=== PATIENT | male | born 1930 | race Caucasian/White ===

== ENCOUNTER 2017-10-25 10:22 | Observation (INO) | payer MEDICARE ==
[~2017-10-25] VITALS: Ht 172.7 cm; Wt 70.0 kg
[~2017-10-25 10:22] MED LIST: CARV3.12 PO; FURO20TA4 PO; IPRA3AMP4 IH; LEVO137T7 PO; MVIT PO; OMEP20CA10 PO; PRED2.5T PO; SACU1TAB PO; SPIR25TA4 PO; TAMS-1 PO; XALA2.5OS OU
[2017-10-25] MEDS ORDERED: ASPIRIN 325 MG TABLET ONE (10:28)
[2017-10-25 10:39] LABS: BASOPHILS % (AUTO) 0.3 % (0.0-5.0); EOSINOPHILS % (AUTO) 1.8 % (0.0-8.0); HEMATOCRIT 44.8 % (42-54); LYMPHOCYTES % (AUTO) 21.2 % (21.0-51.0); MEAN CORPUSCULAR HEMOGLOBIN 29.9 pg (27.0-33.0); MEAN CORPUSCULAR HGB CONC 33.1 g/dL (32.0-36.0); MEAN CORPUSCULAR VOLUME 90.3 fL (79-99); MONOCYTES % (AUTO) 7.7 % (3.0-13.0); PLATELET COUNT (AUTO) 199 K/uL (130-400); RED BLOOD CELL COUNT(AUTO) 4.96 MIL/uL (4.50-6.20); RED CELL DISTRIBUTION WIDTH 15.9 % (11.0-15.5); WHITE BLOOD COUNT (AUTO) 6.8 K/uL (4.8-10.8)
[2017-10-25 10:46] LABS: CREATININE 1.5 mg/dL (0.5-1.5)
[2017-10-25 11:00] LABS: ALBUMIN 3.4 g/dL (3.5-5.0); BILIRUBIN,TOTAL 0.7 mg/dL (0.2-1.0); CREATINE KINASE MB 6.3 ng/mL (0.5-3.6); TOTAL PROTEIN, SERUM 6.5 g/dL (6.0-8.3)
[2017-10-25 11:33] LABS: PARTIAL THROMBOPLASTIN TIME 36.6 SEC (26.3-35.5)
[2017-10-25 11:37] LABS: INR 3.9 (0.85-1.15); PROTHROMBIN TIME 39.9 SEC (9.6-11.6)
[2017-10-25 14:21] VITALS: BP 131/56
[2017-10-25 14:43] LABS: CREATINE KINASE MB 5.3 ng/mL (0.5-3.6); CREATINE KINASE, TOTAL 150 U/L (21-232); MYOGLOBIN 107 ng/mL (10-92); TROPONIN I < 0.04 ng/mL (0.00-0.06)
[2017-10-25] MEDS ORDERED: NITROGLYCERIN 0.4 MG SL TAB SL PRN (14:45)
[2017-10-25] MEDS ORDERED: MORPHINE SULFATE 4 MG/1ML SYG IVP PRN (14:45)
[2017-10-25] MEDS ORDERED: ACETAMINOPHEN 325 MG TAB PO PRN ×2 (14:45)
[2017-10-25] MEDS ORDERED: GLUCAGON 1MG KIT 1 MG ML IM PRN (14:45)
[2017-10-25] MEDS ORDERED: LACTULOSE 20 GM/30 ML UDCUP PO PRN (14:45)
[2017-10-25] MEDS ORDERED: POTASSIUM CHLORIDE 20 MEQ ERTAB PO PRN (14:45)
[2017-10-25] MEDS ORDERED: POTASSIUM CHLORIDE 10% ELIXIR 20 MEQ/15 ML UDCUP PO PRN (14:45)
[2017-10-25] MEDS ORDERED: LIDOCAINE HCL-MPF 1% 2ML VIAL IJ PRN (14:45)
[2017-10-25] MEDS ORDERED: ZOLPIDEM TARTRATE 5 MG TAB PO PRN (14:45)
[2017-10-25] MEDS ORDERED: DEXTROSE 50%-WATER 50 ML DISP.SYRIN IV PRN (14:45)
[2017-10-25] MEDS ORDERED: MAG HYDROX/AL HYDROX/SIMETH ES 30 ML SUSP UDCUP PO PRN (14:45)
[2017-10-25] MEDS ORDERED: DiphenhydrAMINE HCL 50 MG/ML VIAL IVP PRN (14:45)
[2017-10-25] MEDS ORDERED: CLONIDINE HCL 0.1 MG TABLET PO PRN (14:45)
[2017-10-25] MEDS ORDERED: DIPHENHYDRAMINE HCL 25 MG CAPSULE PO PRN (14:45)
[2017-10-25] MEDS ORDERED: ONDANSETRON HCL 4 MG/2 ML VIAL IVP PRN (14:45)
[2017-10-25] MEDS ORDERED: SODIUM CHLORIDE 0.9% 10 ML VIAL IVP SCH (14:45)
[2017-10-25] MEDS ORDERED: POTASSIUM CHLORIDE 20MEQ/100ML 100 ML IV PRN (14:45)
[2017-10-25] MEDS: NITROGLYCERIN 1GM/1 INCH PACKET TD SCH ×2 (15:00→21:00)
[2017-10-25 15:49] VITALS: BP 99/62
[2017-10-25] MEDS: INSULIN R PO SSI SQ SCH ×2 (16:30→21:00)
[2017-10-25] MEDS ORDERED: SACU1TAB7 PO (18:18)
[2017-10-25] MEDS ORDERED: WARF-57 PO (18:20)
[2017-10-25] MEDS ORDERED: WARF2.5T85 PO (18:20)
[2017-10-25 18:54] LABS: CREATINE KINASE MB 4.4 ng/mL (0.5-3.6); CREATINE KINASE, TOTAL 139 U/L (21-232); MYOGLOBIN 93 ng/mL (10-92); TROPONIN I < 0.04 ng/mL (0.00-0.06)
[2017-10-25 19:00] VITALS: BP 104/70
[2017-10-25] MEDS: GUAIFENESIN-DM 200/20 MG 10 ML PO PRN (22:54)
[2017-10-25 23:00] VITALS: BP 120/74
[2017-10-26] MEDS: NITROGLYCERIN 1GM/1 INCH PACKET TD SCH ×3 (03:00→14:54)
[2017-10-26 04:23] VITALS: BP 128/64
[2017-10-26] MEDS: INSULIN R PO SSI SQ SCH ×4 (07:30→21:00)
[2017-10-26 08:00] VITALS: BP 111/60
[2017-10-26] MEDS: LEVOTHYROXINE 112 MCG TABLET PO SCH (09:00)
[2017-10-26] MEDS ORDERED: ASPIRIN 325 MG TABLET PO SCH (09:00)
[2017-10-26] MEDS: LEVOTHYROXINE 25 MCG TABLET PO SCH (09:00)
[2017-10-26] MEDS: SPIRONOLACTONE 25 MG TAB PO SCH (09:00)
[2017-10-26] MEDS ORDERED: WARFARIN SODIUM 2.5 MG TAB PO SCH ×3 (09:00→16:00)
[2017-10-26] MEDS ORDERED: CARVEDILOL 3.125 MG TABLET PO SCH (09:00)
[2017-10-26 11:00] VITALS: BP 103/62
[2017-10-26] MEDS: PANTOPRAZOLE SODIUM 40 MG TABLET.DR PO SCH (11:16)
[2017-10-26 11:27] LABS: INR 2.21 (0.85-1.15); PROTHROMBIN TIME 22.8 SEC (9.6-11.6)
[2017-10-26] MEDS ORDERED: METHYLPREDNISOLONE SOD SUCC 40MG/ML 1ML IVP SCH (14:30)
[2017-10-26] MEDS ORDERED: LEVO750T46 PO (15:20)
[2017-10-26] MEDS ORDERED: FURO10SO PO (15:20)
[2017-10-26] MEDS ORDERED: SACU1TAB7 PO (15:20)
[2017-10-26 16:00] VITALS: BP 114/69
[2017-10-26] MEDS ORDERED: METOPROLOL TARTRATE 1 MG/ML 5ML VIAL IV PRN (16:45)
[2017-10-26 17:19] LABS: INR 1.98 (0.85-1.15); PROTHROMBIN TIME 20.5 SEC (9.6-11.6)
[2017-10-26] MEDS ORDERED: IPRATROPIUM/ALBUTEROL SULFATE 3 ML SOLUTION IH SCH (18:00)
[2017-10-26 19:05] VITALS: BP 112/68
[2017-10-26 23:05] VITALS: BP 135/68
[2017-10-26] MEDS: IPRATROPIUM/ALBUTEROL SULFATE 3 ML SOLUTION IH SCH (23:54)
[2017-10-27] MEDS: GUAIFENESIN-DM 200/20 MG 10 ML PO PRN (01:24)
[2017-10-27 03:05] VITALS: BP 120/69
[2017-10-27 04:56] LABS: INR 1.83 (0.85-1.15); PARTIAL THROMBOPLASTIN TIME 31.4 SEC (26.3-35.5)
[2017-10-27] MEDS: INSULIN R PO SSI SQ SCH (06:19)
[2017-10-27] MEDS: IPRATROPIUM/ALBUTEROL SULFATE 3 ML SOLUTION IH SCH (06:25)
[2017-10-27 08:00] VITALS: BP 147/96
[2017-10-27] MEDS ORDERED: ASPIRIN 325 MG TABLET PO SCH (09:00)
[2017-10-27] MEDS: SPIRONOLACTONE 25 MG TAB PO SCH (10:35)
[2017-10-27] MEDS: PANTOPRAZOLE SODIUM 40 MG TABLET.DR PO SCH (10:36)
[2017-10-27] MEDS: LEVOTHYROXINE 112 MCG TABLET PO SCH (10:39)
[2017-10-27] MEDS: LEVOTHYROXINE 25 MCG TABLET PO SCH (10:39)
[2017-10-27] MEDS ORDERED: ASPIRIN 81MG TAB.CHEW PO SCH (10:45)
[2017-10-27] MEDS ORDERED: PHARMACY COMMUNICATION MISC SCH (10:45)
[2017-10-27 11:00] VITALS: BP 126/83
[2017-10-27] MEDS ORDERED: WARFARIN SODIUM 5 MG TAB PO SCH (16:00)
[2017-10-30] MEDS ORDERED: WARFARIN SODIUM 5 MG TAB PO SCH (16:00)
== END 2017-10-27 13:08 | disposition home or self-care (01) ==
LOC: EDH 10:22 → EDHIP 13:05 → 3BH 14:08
PROVIDERS: ADMIT Family Medicine; ATTEND Family Medicine
DX: J44.1 Chronic obstructive pulmonary disease with (acute) exacerbation (principal); I11.0 Hypertensive heart disease with heart failure; I50.23 Acute on chronic systolic (congestive) heart failure; J96.10 Chronic respiratory failure, unspecified whether with hypoxia or hypercapnia; J18.9 Pneumonia, unspecified organism; I25.10 Atherosclerotic heart disease of native coronary artery without angina pectoris; D68.69 Other thrombophilia; J44.0 Chronic obstructive pulmonary disease with (acute) lower respiratory infection; E03.9 Hypothyroidism, unspecified; G89.29 Other chronic pain; M54.9 Dorsalgia, unspecified; I42.0 Dilated cardiomyopathy; I48.0 Paroxysmal atrial fibrillation; I48.2 Chronic atrial fibrillation; N28.9 Disorder of kidney and ureter, unspecified; Z88.0 Allergy status to penicillin; Z87.891 Personal history of nicotine dependence; Z79.01 Long term (current) use of anticoagulants
CPT/HCPCS: 36415 ×3; 71045 ×2; 78582; 80053; 82550 ×3; 82553 ×3; 82948 ×4; 83874 ×2; 84484 ×3; 85025; 85610 ×4; 85730 ×2; 93005; 93970; 94640 ×3; 94664; 96374; 99285; A4600; A9540; A9558; G0378 ×48; J2920

== ENCOUNTER 2017-12-07 08:27 | Inpatient (IN) | payer MEDICARE ==
[~2017-12-07] VITALS: Ht 172.7 cm; Wt 69.9 kg
[~2017-12-07 08:27] MED LIST changes: -CARV3.12 PO; +FURO10SO PO; -FURO20TA4 PO; +IPRA3AMP24 IH; -IPRA3AMP4 IH; -MVIT PO; -SACU1TAB PO; +SACU1TAB7 PO; -SPIR25TA4 PO; +SPIR25TA6 PO; -TAMS-1 PO; +WARF-57 PO; +WARF2.5T85 PO
[2017-12-07 08:45] LABS: ABG BASE EXCESS 0.7 mmol/L (-2.0-3.0); ABG HCO3 23.1 mmol/L (21.0-28.0); ABG OXYGEN SATURATION 99.1 % (95.0-99.0); ABG PCO2 31 mmHg (35-48)
[2017-12-07] MEDS ORDERED: MORPHINE SULFATE 4 MG/1ML SYG ONE ×2 (08:54→09:55)
[2017-12-07] MEDS ORDERED: ONDANSETRON HCL MDV 20ML 2 MG/ML VIAL ONE (08:54)
[2017-12-07 08:56] LABS: BASOPHILS % (AUTO) 0.6 % (0.0-5.0); EOSINOPHILS % (AUTO) 1.3 % (0.0-8.0); HEMATOCRIT 41.9 % (42-54); LYMPHOCYTES % (AUTO) 22.2 % (21.0-51.0); MEAN CORPUSCULAR HEMOGLOBIN 30.3 pg (27.0-33.0); MEAN CORPUSCULAR HGB CONC 33.1 g/dL (32.0-36.0); MEAN CORPUSCULAR VOLUME 91.6 fL (79-99); MONOCYTES % (AUTO) 7.5 % (3.0-13.0); NEUTROPHILS % (AUTO) 68.4 % (40.0-77.0); PLATELET COUNT (AUTO) 229 K/uL (130-400); RED BLOOD CELL COUNT(AUTO) 4.58 MIL/uL (4.50-6.20); RED CELL DISTRIBUTION WIDTH 16.2 % (11.0-15.5)
[2017-12-07 09:19] LABS: INR 2.92 (0.85-1.15); PARTIAL THROMBOPLASTIN TIME 27.1 SEC (26.3-35.5); PROTHROMBIN TIME 29.1 SEC (9.6-11.6)
[2017-12-07 09:27] LABS: B-TYPE NATRIURETIC PEPTIDE 287 pg/mL (0-100)
[2017-12-07 09:45] LABS: CREATININE 1.1 mg/dL (0.5-1.5); POTASSIUM 3.9 mmol/L (3.5-5.1)
[2017-12-07 09:58] LABS: ALBUMIN 3.3 g/dL (3.5-5.0); BILIRUBIN,TOTAL 0.7 mg/dL (0.2-1.0); TOTAL PROTEIN, SERUM 6.2 g/dL (6.0-8.3)
[2017-12-07] MEDS ORDERED: IOPAMIDOL-370 100 ML VIAL IV ONE (10:00)
[2017-12-07 10:24] LABS: CREATINE KINASE MB 4.2 ng/mL (0.5-3.6)
[2017-12-07] MEDS ORDERED: NITROGLYCERIN 1GM/1 INCH PACKET TD ONE (11:36)
[2017-12-07] MEDS ORDERED: FUROSEMIDE 10 MG/ML 4ML VIAL ONE (11:36)
[2017-12-07 15:00] VITALS: BP 139/53
[2017-12-07] MEDS ORDERED: SACU1TAB7 PO (15:08)
[2017-12-07] MEDS ORDERED: SODIUM CHLORIDE 0.9% 10 ML VIAL IVP PRN (15:15)
[2017-12-07] MEDS ORDERED: MORPHINE SULFATE 4 MG/1ML SYG IVP PRN (15:15)
[2017-12-07] MEDS ORDERED: MORPHINE SULFATE 4 MG/1ML SYG IV SCH (15:30)
[2017-12-07 16:40] LABS: CREATINE KINASE MB 4.1 ng/mL (0.5-3.6); CREATINE KINASE, TOTAL 78 U/L (21-232); MYOGLOBIN 107 ng/mL (10-92); TROPONIN I < 0.04 ng/mL (0.00-0.06)
[2017-12-07] MEDS ORDERED: MORPHINE SULFATE 4 MG/1ML SYG IV PRN (17:45)
[2017-12-07 19:27] VITALS: BP 124/66
[2017-12-07] MEDS ORDERED: ***HM***(Sacubitril/Valsartan (Entresto 49 mg-51 mg Tablet) 1 EACH PO SCH (21:00)
[2017-12-07] MEDS ORDERED: METOPROLOL TARTRATE 25 MG TAB PO SCH (21:00)
[2017-12-07] MEDS: IPRATROPIUM/ALBUTEROL SULFATE 3 ML SOLUTION IH SCH (21:49)
[2017-12-07] MEDS: LATANOPROST 2.5 ML DROPS OU SCH (21:55)
[2017-12-07 22:01] LABS: CREATINE KINASE, TOTAL 72 U/L (21-232); MYOGLOBIN 97 ng/mL (10-92); TROPONIN I < 0.04 ng/mL (0.00-0.06)
[2017-12-08] VITALS (7 sets, daily range): BP systolic 99–119; BP diastolic 47–77
[2017-12-08 05:25] LABS: HEMATOCRIT 42.4 % (42-54); MEAN CORPUSCULAR HEMOGLOBIN 29.9 pg (27.0-33.0); MEAN CORPUSCULAR HGB CONC 32.5 g/dL (32.0-36.0); MEAN CORPUSCULAR VOLUME 91.7 fL (79-99); PLATELET COUNT (AUTO) 208 K/uL (130-400); RED BLOOD CELL COUNT(AUTO) 4.62 MIL/uL (4.50-6.20); RED CELL DISTRIBUTION WIDTH 16.3 % (11.0-15.5); WHITE BLOOD COUNT (AUTO) 10.1 K/uL (4.8-10.8)
[2017-12-08 05:33] LABS: INR 2.16 (0.85-1.15); PARTIAL THROMBOPLASTIN TIME 30.9 SEC (26.3-35.5); PROTHROMBIN TIME 21.7 SEC (9.6-11.6)
[2017-12-08 05:36] LABS: POTASSIUM 4.6 mmol/L (3.5-5.1)
[2017-12-08 05:37] LABS: LYMPHOCYTES % (MANUAL) 13 % (22-44); MAN.DIFF COMMENT-IMPRESSION MANUAL DIFFERENTIAL; MONOCYTES % (MANUAL) 7 % (2-9); PLATELET MORPHOLOGY COMMENT ADEQUATE; REACTIVE LYMPHOCYTES 2 % (0-0); SEGMENTED NEUTROPHILS % 78 % (40-70)
[2017-12-08] MEDS: IPRATROPIUM/ALBUTEROL SULFATE 3 ML SOLUTION IH SCH ×3 (06:29→21:54)
[2017-12-08] MEDS: LEVOTHYROXINE 25 MCG TABLET PO SCH (07:47)
[2017-12-08] MEDS: PREDNISONE 5 MG TABLET PO SCH (07:47)
[2017-12-08] MEDS: LEVOTHYROXINE 112 MCG TABLET PO SCH (07:47)
[2017-12-08] MEDS: CARVEDILOL 6.25 MG TABLET PO SCH ×2 (07:48→20:50)
[2017-12-08] MEDS: LOSARTAN 50 MG TABLET PO SCH (07:48)
[2017-12-08] MEDS: FUROSEMIDE 20 MG TABLET PO SCH (07:48)
[2017-12-08] MEDS: PANTOPRAZOLE SODIUM 40 MG TABLET.DR PO SCH (07:49)
[2017-12-08] MEDS: SPIRONOLACTONE 25 MG TAB PO SCH (07:49)
[2017-12-08] MEDS ORDERED: WARFARIN SODIUM 5 MG TAB PO SCH ×2 (16:00)
[2017-12-08] MEDS: LATANOPROST 2.5 ML DROPS OU SCH (20:50)
[2017-12-09 03:46] VITALS: BP 111/67
[2017-12-09 04:40] LABS: HEMATOCRIT 39.5 % (42-54); MEAN CORPUSCULAR HEMOGLOBIN 30.8 pg (27.0-33.0); MEAN CORPUSCULAR HGB CONC 33.5 g/dL (32.0-36.0); MEAN CORPUSCULAR VOLUME 91.9 fL (79-99); PLATELET COUNT (AUTO) 158 K/uL (130-400); RED CELL DISTRIBUTION WIDTH 15.6 % (11.0-15.5); WHITE BLOOD COUNT (AUTO) 10.4 K/uL (4.8-10.8)
[2017-12-09 04:47] LABS: POTASSIUM 4.6 mmol/L (3.5-5.1)
[2017-12-09 04:50] LABS: INR 1.38 (0.85-1.15); PARTIAL THROMBOPLASTIN TIME 32.9 SEC (26.3-35.5); PROTHROMBIN TIME 14.4 SEC (9.6-11.6)
[2017-12-09] MEDS: LEVOTHYROXINE 25 MCG TABLET PO SCH (06:03)
[2017-12-09] MEDS: LEVOTHYROXINE 112 MCG TABLET PO SCH (06:03)
[2017-12-09 06:09] LABS: BAND NEUTROPHILS % (MANUAL) 3 % (0-2); LYMPHOCYTES % (MANUAL) 7 % (22-44); MAN.DIFF COMMENT-IMPRESSION MANUAL DIFFERENTIAL; MONOCYTES % (MANUAL) 7 % (2-9); PLATELET MORPHOLOGY COMMENT ADEQUATE; REACTIVE LYMPHOCYTES 1 % (0-0); SEGMENTED NEUTROPHILS % 82 % (40-70)
[2017-12-09] MEDS: IPRATROPIUM/ALBUTEROL SULFATE 3 ML SOLUTION IH SCH ×3 (06:13→21:55)
[2017-12-09] MEDS ORDERED: SACU1TAB PO (06:28)
[2017-12-09] MEDS ORDERED: CARV12.511 PO (06:28)
[2017-12-09] MEDS ORDERED: WARFARIN SODIUM 5 MG TAB PO SCH (06:30)
[2017-12-09] MEDS: PANTOPRAZOLE SODIUM 40 MG TABLET.DR PO SCH (06:33)
[2017-12-09 07:50] VITALS: BP 110/61
[2017-12-09] MEDS ORDERED: METHYLPREDNISOLONE SOD SUCC 125MG/2ML VIAL IVP SCH (08:00)
[2017-12-09] MEDS: LOSARTAN 50 MG TABLET PO SCH (09:08)
[2017-12-09] MEDS: FUROSEMIDE 20 MG TABLET PO SCH (09:08)
[2017-12-09] MEDS: SPIRONOLACTONE 25 MG TAB PO SCH (09:08)
[2017-12-09] MEDS: CARVEDILOL 6.25 MG TABLET PO SCH ×2 (09:09→20:23)
[2017-12-09] MEDS: PREDNISONE 5 MG TABLET PO SCH (09:09)
[2017-12-09 11:17] VITALS: BP 96/52
[2017-12-09] MEDS ORDERED: WARFARIN SODIUM 2.5 MG TAB PO SCH ×2 (16:00)
[2017-12-09 16:21] VITALS: BP 100/48
[2017-12-09 20:00] VITALS: BP 104/64
[2017-12-09] MEDS: LATANOPROST 2.5 ML DROPS OU SCH (20:22)
[2017-12-09 23:39] VITALS: BP 112/58
[2017-12-10 03:41] VITALS: BP 114/62
[2017-12-10 04:40] LABS: INR 1.62 (0.85-1.15); PROTHROMBIN TIME 16.8 SEC (9.6-11.6)
[2017-12-10] MEDS: PANTOPRAZOLE SODIUM 40 MG TABLET.DR PO SCH (05:32)
[2017-12-10] MEDS: LEVOTHYROXINE 25 MCG TABLET PO SCH (05:32)
[2017-12-10] MEDS: LEVOTHYROXINE 112 MCG TABLET PO SCH (05:32)
[2017-12-10] MEDS: IPRATROPIUM/ALBUTEROL SULFATE 3 ML SOLUTION IH SCH (06:31)
[2017-12-10] MEDS ORDERED: ATOR10 PO (07:28)
[2017-12-10 07:45] VITALS: BP 110/64
[2017-12-10] MEDS: FUROSEMIDE 20 MG TABLET PO SCH (09:05)
[2017-12-10 09:06] VITALS: BP 110/64
[2017-12-10] MEDS: PREDNISONE 5 MG TABLET PO SCH (09:06)
[2017-12-10] MEDS: CARVEDILOL 6.25 MG TABLET PO SCH (09:06)
[2017-12-10] MEDS: SPIRONOLACTONE 25 MG TAB PO SCH (09:06)
[2017-12-10] MEDS: LOSARTAN 50 MG TABLET PO SCH (09:07)
== END 2017-12-10 12:10 | disposition home or self-care (01) | DRG 300 ==
LOC: EDH 08:27 → EDHIP 11:33 → INTOOBSV 11:33 → OBSVTOIN 11:33 → 2DH 14:52
PROVIDERS: ADMIT Internal Medicine; ATTEND Internal Medicine
DX: I71.2 Thoracic aortic aneurysm, without rupture (principal); I50.22 Chronic systolic (congestive) heart failure; I42.0 Dilated cardiomyopathy; I11.0 Hypertensive heart disease with heart failure; I48.2 Chronic atrial fibrillation; I71.4 Abdominal aortic aneurysm, without rupture; I25.10 Atherosclerotic heart disease of native coronary artery without angina pectoris; E03.9 Hypothyroidism, unspecified; E78.5 Hyperlipidemia, unspecified; G89.29 Other chronic pain; J44.9 Chronic obstructive pulmonary disease, unspecified; Z79.01 Long term (current) use of anticoagulants; Z79.52 Long term (current) use of systemic steroids; Z79.899 Other long term (current) drug therapy; Z86.711 Personal history of pulmonary embolism; Z86.718 Personal history of other venous thrombosis and embolism; Z88.0 Allergy status to penicillin
CPT/HCPCS: 36415; 36600; 71045; 71275; 80048; 80053; 82550; 82553; 82803; 83874; 83880; 84484; 85025; 85610; 85730; 93005; 93306; 94640; 94660; 94664; J1940; J2270; J2930; J7512; Q9967

== ENCOUNTER → 2017-12-14 | Outpatient (CLI) | payer MEDICARE ==
[~2017-12-14] MED LIST changes: +ATOR10 PO; +CARV12.511 PO; +SACU1TAB PO; -SACU1TAB7 PO
== END | disposition home or self-care (01) ==
LOC: OIH 11:14
PROVIDERS: ATTEND Internal Medicine
DX: M81.0 Age-related osteoporosis without current pathological fracture (principal)
CPT/HCPCS: 72070

== ENCOUNTER → 2018-05-20 | Outpatient (CLI) | payer MEDICARE | END | disposition home or self-care (01) | LOC: RAH 14:10 | PROVIDERS: ATTEND Internal Medicine | DX: N60.01 Solitary cyst of right breast (principal); E78.5 Hyperlipidemia, unspecified | CPT/HCPCS: 76641 ==

== ENCOUNTER → 2018-05-20 | Outpatient (CLI) | payer MEDICARE ==
[~2018-05-20] MED LIST changes: +HONEY 1 APPL/ML TUBE TP ONE
[2018-05-20 13:00] VITALS: BP 99/68
== END | disposition home or self-care (01) ==
LOC: WHH 10:15
PROVIDERS: ATTEND Surgery
DX: I70.232 Atherosclerosis of native arteries of right leg with ulceration of calf (principal); L97.212 Non-pressure chronic ulcer of right calf with fat layer exposed; I48.91 Unspecified atrial fibrillation; J44.9 Chronic obstructive pulmonary disease, unspecified; E78.5 Hyperlipidemia, unspecified; I11.0 Hypertensive heart disease with heart failure; I50.42 Chronic combined systolic (congestive) and diastolic (congestive) heart failure; K21.9 Gastro-esophageal reflux disease without esophagitis; Z87.891 Personal history of nicotine dependence; Z86.718 Personal history of other venous thrombosis and embolism; Z86.711 Personal history of pulmonary embolism
CPT/HCPCS: A4450; G0463

== ENCOUNTER → 2018-05-21 | Outpatient (CLI) | payer MEDICARE ==
[~2018-05-21] MED LIST changes: -HONEY 1 APPL/ML TUBE TP ONE
== END | disposition home or self-care (01) ==
LOC: WHH 08:20
PROVIDERS: ATTEND Surgery
DX: I70.238 Atherosclerosis of native arteries of right leg with ulceration of other part of lower leg (principal); L97.811 Non-pressure chronic ulcer of other part of right lower leg limited to breakdown of skin; J44.9 Chronic obstructive pulmonary disease, unspecified; K21.9 Gastro-esophageal reflux disease without esophagitis; E78.5 Hyperlipidemia, unspecified; I48.91 Unspecified atrial fibrillation; I11.0 Hypertensive heart disease with heart failure; I50.42 Chronic combined systolic (congestive) and diastolic (congestive) heart failure
CPT/HCPCS: 93922

== ENCOUNTER → 2018-05-25 | Outpatient (CLI) | payer MEDICARE | END | disposition home or self-care (01) | LOC: RAH 12:33 | PROVIDERS: ATTEND Surgery | DX: I70.238 Atherosclerosis of native arteries of right leg with ulceration of other part of lower leg (principal); I11.0 Hypertensive heart disease with heart failure; I50.42 Chronic combined systolic (congestive) and diastolic (congestive) heart failure; E78.5 Hyperlipidemia, unspecified; I48.91 Unspecified atrial fibrillation; J44.9 Chronic obstructive pulmonary disease, unspecified; K21.9 Gastro-esophageal reflux disease without esophagitis | CPT/HCPCS: 93926 ==

== ENCOUNTER → 2018-06-03 | Outpatient (CLI) | payer MEDICARE ==
[2018-06-03 14:46] VITALS: BP 112/73
== END | disposition home or self-care (01) ==
LOC: WHH 08:30
PROVIDERS: ATTEND Surgery
DX: I70.232 Atherosclerosis of native arteries of right leg with ulceration of calf (principal); L97.212 Non-pressure chronic ulcer of right calf with fat layer exposed; I48.91 Unspecified atrial fibrillation; J44.9 Chronic obstructive pulmonary disease, unspecified; E78.5 Hyperlipidemia, unspecified; I11.0 Hypertensive heart disease with heart failure; I50.42 Chronic combined systolic (congestive) and diastolic (congestive) heart failure; K21.9 Gastro-esophageal reflux disease without esophagitis; Z87.891 Personal history of nicotine dependence; Z86.718 Personal history of other venous thrombosis and embolism; Z86.711 Personal history of pulmonary embolism
CPT/HCPCS: G0463

== ENCOUNTER → 2018-06-10 | Outpatient (CLI) | payer MEDICARE ==
[~2018-06-10] MED LIST changes: +LIDOCAINE/PRILOCAINE CREAM 5GM TUBE TP ONE
[2018-06-10 14:14] VITALS: BP 130/87
== END | disposition home or self-care (01) ==
LOC: WHH 08:50
PROVIDERS: ATTEND Surgery
DX: I70.232 Atherosclerosis of native arteries of right leg with ulceration of calf (principal); L97.212 Non-pressure chronic ulcer of right calf with fat layer exposed; I48.91 Unspecified atrial fibrillation; J44.9 Chronic obstructive pulmonary disease, unspecified; E78.5 Hyperlipidemia, unspecified; I11.0 Hypertensive heart disease with heart failure; I50.42 Chronic combined systolic (congestive) and diastolic (congestive) heart failure; K21.9 Gastro-esophageal reflux disease without esophagitis; Z87.891 Personal history of nicotine dependence; Z86.718 Personal history of other venous thrombosis and embolism; Z86.711 Personal history of pulmonary embolism
CPT/HCPCS: 11042; A6021; J3490

== ENCOUNTER → 2018-06-17 | Outpatient (CLI) | payer MEDICARE ==
[2018-06-17 12:35] VITALS: BP 134/95
== END | disposition home or self-care (01) ==
LOC: WHH 09:00
PROVIDERS: ATTEND Surgery
DX: I70.232 Atherosclerosis of native arteries of right leg with ulceration of calf (principal); L97.212 Non-pressure chronic ulcer of right calf with fat layer exposed; I48.91 Unspecified atrial fibrillation; J44.9 Chronic obstructive pulmonary disease, unspecified; E78.5 Hyperlipidemia, unspecified; I11.0 Hypertensive heart disease with heart failure; I50.42 Chronic combined systolic (congestive) and diastolic (congestive) heart failure; K21.9 Gastro-esophageal reflux disease without esophagitis; Z87.891 Personal history of nicotine dependence; Z86.718 Personal history of other venous thrombosis and embolism; Z86.711 Personal history of pulmonary embolism
CPT/HCPCS: 11042; A6021; J3490

== ENCOUNTER → 2018-06-24 | Outpatient (CLI) | payer MEDICARE ==
[~2018-06-24] MED LIST changes: -LIDOCAINE/PRILOCAINE CREAM 5GM TUBE TP ONE
[2018-06-24 13:50] VITALS: BP 123/77
== END | disposition home or self-care (01) ==
LOC: WHH 08:45
PROVIDERS: ATTEND Surgery
DX: I70.232 Atherosclerosis of native arteries of right leg with ulceration of calf (principal); L97.212 Non-pressure chronic ulcer of right calf with fat layer exposed; I48.91 Unspecified atrial fibrillation; J44.9 Chronic obstructive pulmonary disease, unspecified; E78.5 Hyperlipidemia, unspecified; I11.0 Hypertensive heart disease with heart failure; I50.42 Chronic combined systolic (congestive) and diastolic (congestive) heart failure; K21.9 Gastro-esophageal reflux disease without esophagitis; Z87.891 Personal history of nicotine dependence; Z86.718 Personal history of other venous thrombosis and embolism; Z86.711 Personal history of pulmonary embolism
CPT/HCPCS: A6022; G0463

== ENCOUNTER → 2018-07-01 | Outpatient (CLI) | payer MEDICARE ==
[~2018-07-01] MED LIST changes: +LIDOCAINE/PRILOCAINE CREAM 5GM TUBE TP ONE
[2018-07-01 13:28] VITALS: BP 113/78
== END | disposition home or self-care (01) ==
LOC: WHH 08:55
PROVIDERS: ATTEND Surgery
DX: I70.232 Atherosclerosis of native arteries of right leg with ulceration of calf (principal); I87.331 Chronic venous hypertension (idiopathic) with ulcer and inflammation of right lower extremity; L97.212 Non-pressure chronic ulcer of right calf with fat layer exposed; I48.91 Unspecified atrial fibrillation; J44.9 Chronic obstructive pulmonary disease, unspecified; E78.5 Hyperlipidemia, unspecified; I11.0 Hypertensive heart disease with heart failure; I50.42 Chronic combined systolic (congestive) and diastolic (congestive) heart failure; K21.9 Gastro-esophageal reflux disease without esophagitis; Z87.891 Personal history of nicotine dependence; Z86.718 Personal history of other venous thrombosis and embolism; Z86.711 Personal history of pulmonary embolism
CPT/HCPCS: 29580; A6021; A6456; G0463; J3490

== ENCOUNTER → 2018-07-08 | Outpatient (CLI) | payer MEDICARE ==
[~2018-07-08] MED LIST changes: -LIDOCAINE/PRILOCAINE CREAM 5GM TUBE TP ONE
[2018-07-08 13:59] VITALS: BP 103/73
== END | disposition home or self-care (01) ==
LOC: WHH 09:00
PROVIDERS: ATTEND Surgery
DX: I70.232 Atherosclerosis of native arteries of right leg with ulceration of calf (principal); I87.331 Chronic venous hypertension (idiopathic) with ulcer and inflammation of right lower extremity; L97.212 Non-pressure chronic ulcer of right calf with fat layer exposed; I48.91 Unspecified atrial fibrillation; J44.9 Chronic obstructive pulmonary disease, unspecified; E78.5 Hyperlipidemia, unspecified; I11.0 Hypertensive heart disease with heart failure; I50.42 Chronic combined systolic (congestive) and diastolic (congestive) heart failure; K21.9 Gastro-esophageal reflux disease without esophagitis; Z87.891 Personal history of nicotine dependence; Z86.718 Personal history of other venous thrombosis and embolism; Z86.711 Personal history of pulmonary embolism
CPT/HCPCS: 29580; A6456; G0463

== ENCOUNTER → 2018-07-15 | Outpatient (CLI) | payer MEDICARE ==
[~2018-07-15] MED LIST changes: +LIDOCAINE/PRILOCAINE CREAM 5GM TUBE TP ONE
[2018-07-15 13:31] VITALS: BP 127/82
== END | disposition home or self-care (01) ==
LOC: WHH 09:00
PROVIDERS: ATTEND Surgery
DX: I70.232 Atherosclerosis of native arteries of right leg with ulceration of calf (principal); I87.331 Chronic venous hypertension (idiopathic) with ulcer and inflammation of right lower extremity; L97.212 Non-pressure chronic ulcer of right calf with fat layer exposed; I48.91 Unspecified atrial fibrillation; J44.9 Chronic obstructive pulmonary disease, unspecified; E78.5 Hyperlipidemia, unspecified; I11.0 Hypertensive heart disease with heart failure; I50.42 Chronic combined systolic (congestive) and diastolic (congestive) heart failure; K21.9 Gastro-esophageal reflux disease without esophagitis; Z87.891 Personal history of nicotine dependence; Z86.718 Personal history of other venous thrombosis and embolism; Z86.711 Personal history of pulmonary embolism
CPT/HCPCS: A6209; G0463; J3490

== ENCOUNTER → 2018-07-29 | Outpatient (CLI) | payer MEDICARE ==
[~2018-07-29] MED LIST changes: -LIDOCAINE/PRILOCAINE CREAM 5GM TUBE TP ONE
[2018-07-29 14:11] VITALS: BP 104/71
== END | disposition home or self-care (01) ==
LOC: WHH 10:25
PROVIDERS: ATTEND Surgery
DX: I70.232 Atherosclerosis of native arteries of right leg with ulceration of calf (principal); I87.331 Chronic venous hypertension (idiopathic) with ulcer and inflammation of right lower extremity; L97.218 Non-pressure chronic ulcer of right calf with other specified severity; I48.91 Unspecified atrial fibrillation; J44.9 Chronic obstructive pulmonary disease, unspecified; E78.5 Hyperlipidemia, unspecified; I11.0 Hypertensive heart disease with heart failure; I50.42 Chronic combined systolic (congestive) and diastolic (congestive) heart failure; K21.9 Gastro-esophageal reflux disease without esophagitis; Z87.891 Personal history of nicotine dependence; Z86.718 Personal history of other venous thrombosis and embolism; Z86.711 Personal history of pulmonary embolism
CPT/HCPCS: G0463

== ENCOUNTER → 2019-02-23 | Outpatient (CLI) | payer MEDICARE | END | disposition home or self-care (01) | LOC: RAH 12:33 | PROVIDERS: ATTEND Internal Medicine | DX: K76.89 Other specified diseases of liver (principal); K43.9 Ventral hernia without obstruction or gangrene; K44.9 Diaphragmatic hernia without obstruction or gangrene; N32.89 Other specified disorders of bladder; N28.1 Cyst of kidney, acquired; I51.7 Cardiomegaly; I70.0 Atherosclerosis of aorta; M47.817 Spondylosis without myelopathy or radiculopathy, lumbosacral region; M43.10 Spondylolisthesis, site unspecified | CPT/HCPCS: 74176 ==

== ENCOUNTER 2019-04-07 18:22 | Emergency (ER) | payer MEDICARE ==
[~2019-04-07 18:22] MED LIST changes: +OMEP-50 PO; -OMEP20CA10 PO
[2019-04-07] MEDS ORDERED: OCTYL 2-CYANOACRYLATE 1 EACH TP ONE (18:46)
[2019-04-07] MEDS ORDERED: TETANUS/DIPHTHERIA TOXOID [ADULT] 0.5 ML VIAL IM ONE (18:47)
[2019-04-07 19:21] LABS: POTASSIUM 4.3 mmol/L (3.5-5.1)
[2019-04-07 19:26] LABS: ALBUMIN 3.3 g/dL (3.5-5.0); BILIRUBIN,TOTAL 0.7 mg/dL (0.2-1.0); EOSINOPHILS % (AUTO) 6.9 % (0.0-8.0); HEMATOCRIT 39.7 % (42-54); LYMPHOCYTES % (AUTO) 20.4 % (21.0-51.0); MEAN CORPUSCULAR HEMOGLOBIN 30.5 pg (27.0-33.0); MEAN CORPUSCULAR HGB CONC 32.6 g/dL (32.0-36.0); MEAN CORPUSCULAR VOLUME 93.4 fL (79-99); MONOCYTES % (AUTO) 13.1 % (3.0-13.0); NEUTROPHILS % (AUTO) 58.6 % (40.0-77.0); NUCLEATED RED BLOOD CELLS 0.1 % (0.0-0.19); PLATELET COUNT (AUTO) 143 K/uL (130-400); RED BLOOD CELL COUNT(AUTO) 4.25 MIL/uL (4.50-6.20); RED CELL DISTRIBUTION WIDTH 15.3 % (11.0-15.5); TOTAL PROTEIN, SERUM 6.8 g/dL (6.0-8.3); WHITE BLOOD COUNT (AUTO) 4.7 K/uL (4.8-10.8)
[2019-04-07 19:47] LABS: B-TYPE NATRIURETIC PEPTIDE 765 pg/mL (0-100)
[2019-04-07 19:59] LABS: INR 1.86 (0.85-1.15); PARTIAL THROMBOPLASTIN TIME 33.6 SEC (26.3-35.5); PROTHROMBIN TIME 19.3 SEC (9.6-11.6)
== END 2019-04-07 20:37 | disposition left against medical advice (07) ==
LOC: EDH 18:22
DX: S81.811A Laceration without foreign body, right lower leg, initial encounter (principal); I48.91 Unspecified atrial fibrillation; I48.92 Unspecified atrial flutter; I25.10 Atherosclerotic heart disease of native coronary artery without angina pectoris; J44.9 Chronic obstructive pulmonary disease, unspecified; I10 Essential (primary) hypertension; Z87.891 Personal history of nicotine dependence; Z88.0 Allergy status to penicillin; W01.190A Fall on same level from slipping, tripping and stumbling with subsequent striking against furniture, initial encounter; Y93.89 Activity, other specified; Y92.098 Other place in other non-institutional residence as the place of occurrence of the external cause; Y99.8 Other external cause status
CPT/HCPCS: 36415; 73590; 80053; 82550; 83880; 84484; 85025; 85610; 85730; 90471; 90714; 93005; 99285; G0480

== ENCOUNTER 2019-06-15 10:46 | Observation (INO) | payer MEDICARE ==
[~2019-06-15] VITALS: Ht 175.3 cm; Wt 68.4 kg
[~2019-06-15 10:46] MED LIST changes: +OMEP-298 PO; -OMEP-50 PO
[2019-06-15 11:17] LABS: BASOPHILS % (AUTO) 0.4 % (0.0-5.0); EOSINOPHILS % (AUTO) 0.8 % (0.0-8.0); HEMATOCRIT 41.7 % (42-54); LYMPHOCYTES % (AUTO) 4.4 % (21.0-51.0); MEAN CORPUSCULAR HEMOGLOBIN 30.1 pg (27.0-33.0); MEAN CORPUSCULAR HGB CONC 32.9 g/dL (32.0-36.0); MEAN CORPUSCULAR VOLUME 91.6 fL (79-99); MONOCYTES % (AUTO) 5.9 % (3.0-13.0); NEUTROPHILS % (AUTO) 88.5 % (40.0-77.0); PLATELET COUNT (AUTO) 157 K/uL (130-400); RED BLOOD CELL COUNT(AUTO) 4.55 MIL/uL (4.50-6.20); RED CELL DISTRIBUTION WIDTH 14.6 % (11.0-15.5); WHITE BLOOD COUNT (AUTO) 10.7 K/uL (4.8-10.8)
[2019-06-15] MEDS ORDERED: LEVOFLOXACIN 750 MG/D5W 150 ML 150 ML ONE (11:28)
[2019-06-15] MEDS ORDERED: METHYLPREDNISOLONE SOD SUCC 40MG/ML 1ML ONE (11:28)
[2019-06-15 11:31] LABS: POTASSIUM 4.6 mmol/L (3.5-5.1)
[2019-06-15 11:36] LABS: ALBUMIN 3.5 g/dL (3.5-5.0); BILIRUBIN,TOTAL 1.1 mg/dL (0.2-1.0); TOTAL PROTEIN, SERUM 7.4 g/dL (6.0-8.3)
[2019-06-15 11:37] LABS: RAPID GROUP A STREP NEGATIVE (NEGATIVE)
[2019-06-15] MEDS ORDERED: IPRATROPIUM 0.5 MG/2.5 ML INH IH SCH (13:45)
[2019-06-15] MEDS ORDERED: HYDRALAZINE HCL 20 MG/ML VIAL IM PRN (13:45)
[2019-06-15] MEDS: METHYLPREDNISOLONE SOD SUCC 40MG/ML 1ML IVP SCH ×2 (13:45→21:45)
[2019-06-15 14:00] VITALS: BP 129/90
[2019-06-15 16:00] VITALS: BP 123/91
[2019-06-15] MEDS ORDERED: WARFARIN SODIUM 2.5 MG TAB PO SCH (16:00)
[2019-06-15] MEDS ORDERED: IOHEXOL-350 75 ML VIAL IV ONE (16:28)
[2019-06-15 17:59] LABS: INR 2.09 (0.85-1.15); PROTHROMBIN TIME 21.3 SEC (9.6-11.6)
[2019-06-15] MEDS: BUDESONIDE 0.5 MG/2 ML INH IH SCH (19:00)
[2019-06-15] MEDS: IPRATROPIUM 0.5 MG/2.5 ML INH IH SCH (19:01)
[2019-06-15 20:29] VITALS: BP 119/69
[2019-06-15] MEDS: LATANOPROST 2.5 ML DROPS OU SCH (21:00)
[2019-06-15] MEDS: ATORVASTATIN CALCIUM 20 MG TABLET PO SCH (21:00)
[2019-06-15] MEDS ORDERED: BUDESONIDE 0.5 MG/2 ML INH IH SCH (21:00)
[2019-06-15] MEDS: CARVEDILOL 12.5 MG TABLET PO SCH (21:00)
[2019-06-16 00:24] VITALS: BP 116/76
[2019-06-16 05:13] LABS: HEMATOCRIT 38.1 % (42-54); LYMPHOCYTES % (AUTO) 3.8 % (21.0-51.0); MEAN CORPUSCULAR HEMOGLOBIN 30.9 pg (27.0-33.0); MEAN CORPUSCULAR HGB CONC 33.4 g/dL (32.0-36.0); MEAN CORPUSCULAR VOLUME 92.5 fL (79-99); MONOCYTES % (AUTO) 2.2 % (3.0-13.0); PLATELET COUNT (AUTO) 131 K/uL (130-400); RED BLOOD CELL COUNT(AUTO) 4.12 MIL/uL (4.50-6.20); RED CELL DISTRIBUTION WIDTH 14.7 % (11.0-15.5); WHITE BLOOD COUNT (AUTO) 10.5 K/uL (4.8-10.8)
[2019-06-16 05:20] LABS: INR 1.69 (0.85-1.15); PROTHROMBIN TIME 17.4 SEC (9.6-11.6)
[2019-06-16 05:24] VITALS: BP 109/63
[2019-06-16 05:35] LABS: ALBUMIN 2.8 g/dL (3.5-5.0); BILIRUBIN,TOTAL 1.1 mg/dL (0.2-1.0); MAGNESIUM 1.9 mg/dL (1.80-2.40); POTASSIUM 4.1 mmol/L (3.5-5.1); TOTAL PROTEIN, SERUM 6.5 g/dL (6.0-8.3)
[2019-06-16 05:38] LABS: B-TYPE NATRIURETIC PEPTIDE 1220 pg/mL (0-100)
[2019-06-16] MEDS: METHYLPREDNISOLONE SOD SUCC 40MG/ML 1ML IVP SCH ×3 (06:16→20:59)
[2019-06-16] MEDS: LEVOTHYROXINE 112 MCG TABLET PO SCH (06:20)
[2019-06-16] MEDS: LEVOTHYROXINE 25 MCG TABLET PO SCH (06:20)
[2019-06-16] MEDS: IPRATROPIUM 0.5 MG/2.5 ML INH IH SCH ×5 (07:21→23:11)
[2019-06-16] MEDS: BUDESONIDE 0.5 MG/2 ML INH IH SCH ×2 (07:28→18:33)
[2019-06-16 07:30] VITALS: BP 104/74
[2019-06-16] MEDS: CARVEDILOL 12.5 MG TABLET PO SCH ×2 (09:00→21:00)
[2019-06-16] MEDS: SPIRONOLACTONE 25 MG TAB PO SCH (09:01)
[2019-06-16] MEDS: LEVOFLOXACIN 750 MG/D5W 150 ML 150 ML IV SCH (09:05)
[2019-06-16 11:00] VITALS: BP 126/68
[2019-06-16 15:06] LABS: ABG BASE EXCESS -1.5 mmol/L (-2.0-3.0); ABG HCO3 21.8 mmol/L (21.0-28.0); ABG OXYGEN SATURATION 92.1 % (95.0-99.0); ABG PCO2 33 mmHg (35-48)
[2019-06-16 16:00] VITALS: BP 137/99
[2019-06-16] MEDS ORDERED: WARFARIN SODIUM 5 MG TAB PO SCH (16:00)
[2019-06-16] MEDS: LATANOPROST 2.5 ML DROPS OU SCH (20:59)
[2019-06-16] MEDS: **HM** ENTRESTO 24-26MG PO SCH (21:00)
[2019-06-16] MEDS: ATORVASTATIN CALCIUM 20 MG TABLET PO SCH (21:00)
[2019-06-16 21:02] VITALS: BP 120/86
[2019-06-17 04:09] LABS: MAGNESIUM 1.9 mg/dL (1.80-2.40); POTASSIUM 4.2 mmol/L (3.5-5.1)
[2019-06-17 05:39] VITALS: BP 142/77
[2019-06-17] MEDS: IPRATROPIUM 0.5 MG/2.5 ML INH IH SCH (06:19)
[2019-06-17] MEDS: LEVOTHYROXINE 25 MCG TABLET PO SCH (06:30)
[2019-06-17] MEDS: LEVOTHYROXINE 112 MCG TABLET PO SCH (06:30)
[2019-06-17] MEDS: BUDESONIDE 0.5 MG/2 ML INH IH SCH (06:31)
[2019-06-17 08:03] VITALS: BP 124/79
[2019-06-17] MEDS: LEVOFLOXACIN 750 MG/D5W 150 ML 150 ML IV SCH (09:00)
[2019-06-17] MEDS ORDERED: FUROSEMIDE 20 MG TABLET PO SCH (09:00)
[2019-06-17] MEDS: METHYLPREDNISOLONE SOD SUCC 40MG/ML 1ML IVP SCH (09:00)
[2019-06-17] MEDS: **HM** ENTRESTO 24-26MG PO SCH (09:00)
[2019-06-17] MEDS: SPIRONOLACTONE 25 MG TAB PO SCH ×2 (09:00→10:06)
[2019-06-17 10:05] VITALS: BP 124/75
[2019-06-17] MEDS: CARVEDILOL 12.5 MG TABLET PO SCH (10:05)
[2019-06-17] MEDS ORDERED: WARFARIN SODIUM 5 MG TAB PO SCH (16:00)
== END 2019-06-17 11:10 | disposition home or self-care (01) ==
LOC: EDH 10:46 → EDHIP 10:47 → 3AH 13:58
PROVIDERS: ADMIT Internal Medicine; ATTEND Internal Medicine
DX: J44.1 Chronic obstructive pulmonary disease with (acute) exacerbation (principal); J44.0 Chronic obstructive pulmonary disease with (acute) lower respiratory infection; I71.2 Thoracic aortic aneurysm, without rupture; I82.401 Acute embolism and thrombosis of unspecified deep veins of right lower extremity; J18.9 Pneumonia, unspecified organism; I11.0 Hypertensive heart disease with heart failure; I50.22 Chronic systolic (congestive) heart failure; I48.0 Paroxysmal atrial fibrillation; I48.21 Permanent atrial fibrillation; I42.0 Dilated cardiomyopathy; J84.10 Pulmonary fibrosis, unspecified; E03.9 Hypothyroidism, unspecified; I25.10 Atherosclerotic heart disease of native coronary artery without angina pectoris; I27.20 Pulmonary hypertension, unspecified; I34.0 Nonrheumatic mitral (valve) insufficiency; J96.21 Acute and chronic respiratory failure with hypoxia; Z90.411 Acquired partial absence of pancreas; Z85.07 Personal history of malignant neoplasm of pancreas; Z99.81 Dependence on supplemental oxygen; Z87.891 Personal history of nicotine dependence; Z79.01 Long term (current) use of anticoagulants; Z79.899 Other long term (current) drug therapy; Z88.0 Allergy status to penicillin
CPT/HCPCS: 36415 ×3; 36600; 71045 ×2; 71275; 80048; 80053 ×2; 82803; 83735 ×2; 83880 ×2; 84145; 84484; 85025 ×2; 85610 ×2; 85730; 87040 ×2; 87804 ×2; 87880; 93306; 94640 ×10; 94664; 94760; 96365; 96375; 96376; 99284; G0378 ×47; J1956 ×3; J2920 ×5; Q9967

== ENCOUNTER 2019-08-31 07:47 | Emergency (ER) | payer MEDICARE ==
[2019-08-31 08:42] LABS: BASOPHILS % (AUTO) 0.2 % (0.0-5.0); EOSINOPHILS % (AUTO) 0.5 % (0.0-8.0); HEMATOCRIT 39.8 % (42-54); LYMPHOCYTES % (AUTO) 3.9 % (21.0-51.0); MEAN CORPUSCULAR HEMOGLOBIN 29.4 pg (27.0-33.0); MEAN CORPUSCULAR HGB CONC 31.9 g/dL (32.0-36.0); MEAN CORPUSCULAR VOLUME 92.1 fL (79-99); MONOCYTES % (AUTO) 5.8 % (3.0-13.0); NEUTROPHILS % (AUTO) 89.1 % (40.0-77.0); PLATELET COUNT (AUTO) 164 K/uL (130-400); RED BLOOD CELL COUNT(AUTO) 4.32 MIL/uL (4.50-6.20); RED CELL DISTRIBUTION WIDTH 15.1 % (11.0-15.5); WHITE BLOOD COUNT (AUTO) 12.5 K/uL (4.8-10.8)
[2019-08-31 09:01] LABS: INR 1.98 (0.85-1.15); PROTHROMBIN TIME 20.3 SEC (9.6-11.6)
[2019-08-31 09:03] LABS: POTASSIUM 4.2 mmol/L (3.5-5.1)
[2019-08-31 09:33] LABS: B-TYPE NATRIURETIC PEPTIDE 765 pg/mL (0-100)
[2019-08-31] MEDS ORDERED: IPRATROPIUM/ALBUTEROL SULFATE 3 ML SOLUTION IH ONE (10:12)
[2019-08-31] MEDS ORDERED: MAGNESIUM OXIDE 400 MG TABLET PO ONE (10:42)
[2019-08-31] MEDS ORDERED: FUROSEMIDE 10 MG/ML 4ML VIAL ONE (10:42)
[2019-08-31] MEDS ORDERED: METHYLPREDNISOLONE SOD SUCC 125MG/2ML VIAL ONE (10:42)
[2019-08-31] MEDS ORDERED: DOXYCYCLINE HYCLATE 100 MG TABLET PO ONE (10:42)
[2019-08-31 10:52] LABS: APPEARANCE,URINE Cloudy (CLEAR); BILIRUBIN,URINE Negative (NEGATIVE); COLOR,URINE Yellow (YELLOW); GLUCOSE, URINE (UA) Negative (NEGATIVE); KETONES,URINE Negative (NEGATIVE); LEUKOCYTE ESTERASE ,URINE Small (NEGATIVE); NITRATE,URINE Negative (NEGATIVE); OCCULT BLOOD,URINE Negative (NEGATIVE); PROTEIN,URINE Negative (NEGATIVE)
[2019-08-31 10:56] LABS: BACTERIA,URINE Rare /HPF (None Seen); RBC,URINE 0-1 /HPF (0-1); SQUAMOUS EPITHELIAL CELL,UR Rare /HPF (0-2); WBC,URINE 0-1 /HPF (0-1)
[2019-08-31 10:58] LABS: OTHER CRYSTALS,URINE FEW /LPF (None Seen)
[2019-08-31 12:00] LABS: ALBUMIN 3.5 g/dL (3.5-5.0); BILIRUBIN,TOTAL 0.9 mg/dL (0.2-1.0); TOTAL PROTEIN, SERUM 6.5 g/dL (6.0-8.3)
== END 2019-08-31 11:51 | disposition home or self-care (01) ==
LOC: EDH 07:47
DX: J44.1 Chronic obstructive pulmonary disease with (acute) exacerbation (principal); I50.43 Acute on chronic combined systolic (congestive) and diastolic (congestive) heart failure; E83.42 Hypomagnesemia; D64.9 Anemia, unspecified; I25.10 Atherosclerotic heart disease of native coronary artery without angina pectoris; I11.0 Hypertensive heart disease with heart failure; Z98.890 Other specified postprocedural states; Z87.891 Personal history of nicotine dependence; Z88.0 Allergy status to penicillin
CPT/HCPCS: 36415; 71046; 80053; 81001; 82550; 83605; 83735; 83880; 84484; 85025; 85610; 85730; 87804 ×2; 93005; 94640; 96374; 96375; 99285; J1940; J2930